=== PATIENT | female | born 1985 | race Caucasian/White ===

== ENCOUNTER 2017-01-23 15:50 | Emergency (ER) | payer OTHER | END 2017-01-23 19:15 | disposition home or self-care (01) | LOC: ER 15:50 | DX: K59.00 Constipation, unspecified (principal); K64.9 Unspecified hemorrhoids; Z90.710 Acquired absence of both cervix and uterus; Z79.899 Other long term (current) drug therapy; Z88.8 Allergy status to other drugs, medicaments and biological substances; Z88.5 Allergy status to narcotic agent; Z88.2 Allergy status to sulfonamides | CPT/HCPCS: 36415; 96361; 96374 ==